=== PATIENT | female | born 1970 | race Hispanic/Latino ===

== ENCOUNTER 2023-08-17 11:29 | Emergency (ER) | payer OTHER ==
[2023-08-17 12:05] LABS: Hematocrit 40.5 % (36.0-45.0); Lymphocytes % 15.8 % (15.3-44.8); MCV 93.2 fL (80-100); MPV 9.3 fL (7.6-11.3); Platelets 235 thou/uL (152-406); RBC Red Blood Cell Count 4.34 M/uL (3.86-4.86)
--- NOTE | 2023-08-17 12:18 | RAD REPORT ---
EXAM DESCRIPTION: CT - Head Brain Wo Cont - 08/17/2023 12:00 pm CLINICAL HISTORY: HEADACHE Headache, drowsiness COMPARISON: No comparisons TECHNIQUE: All CT scans are performed using dose optimization technique as appropriate and may inclu de automated exposure control or mA/KV adjustment according to patient size. FINDINGS: No intracranial hemorrhage, hydrocephalus or extra-axial fluid collection.Prominent falx c alcifications.No areas of brain edema or evidence of midline shift. The paranasal sinuses and mastoids are clear. The calvarium is intact. IMPRESSION: No acute intracranial abnormality.
[2023-08-17 12:31] LABS: Bilirubin Direct 0.2 mg/dL (0-0.2); Bilirubin Total 0.4 mg/dL (0.2-1.0); Potassium 3.7 mEq/L (3.5-5.1)
[2023-08-17 12:32] LABS: Albumin 4.1 g/dL (3.4-5.0); Bilirubin Indirect, Calculated 0.2 mg/dL (0.2-0.8); Magnesium 2.2 mg/dL (1.6-2.4); Protein, Total 8.3 g/dL (6.4-8.2); Troponin High Sensitivity 6.5 pg/mL (<58.9)
--- NOTE | 2023-08-17 12:45 | RAD REPORT ---
EXAM DESCRIPTION: RAD - Chest Single View - 08/17/2023 12:11 pm CLINICAL HISTORY: CHEST PAIN Chest pain. COMPARISON: No comparisons FINDINGS: Portable technique limits examination quality. The lungs are grossly clear. The heart is normal in size. No displaced fractures. IMPRESSION: No acute intrathoracic process suspected.
--- NOTE | 2023-08-17 14:53 | ER ---
Nurse's Notes [facility] Name: Mariam Leslie Age: 53 yrs Sex: Female : 1970 Arrival Date: 08/17/2023 Time: 11:29 Bed 17 Private MD: Diagnosis: Elevated blood-pressure reading, without diagnosis of hypertension Presentation: 08/17 11:43 Chief complaint: Patient states: BP this morning 189/93, reports headache and dizziness ph at that time, no hx of HTN, denies chest pain. Coronavirus screen: Vaccine status: Patient reports receiving the 2nd dose of the covid vaccine. Ebola Screen: No symptoms or risks identified at this time. Initial Sepsis Screen: Does the patient meet any 2 criteria? No. Patient's initial sepsis screen is negative. Does the patient have a suspected source of infection? No. Patient's initial sepsis screen is negative. Risk Assessment: Do you want to hurt yourself or someone else? Patient reports no desire to harm self or others. Onset of symptoms was August 17, 2023. 11:43 Method Of Arrival: Ambulatory ph 11:43 Acuity: JELYL 3 ph Triage Assessment: 11:45 Headache History: Denies prior headaches. Pain: Pain began suddenly, 2 hours ago. Also eh3 complains of photophobia. 11:45 Pain: Pain currently is 8 out of 10 on a pain scale. eh3 11:46 General: Appears in no apparent distress. Behavior is calm, cooperative. Pain: Denies ph pain. Neuro: Level of Consciousness is awake, alert, obeys commands, Oriented to person, place, time, situation, Reports dizziness. 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 - Social history:: Smoking status: Patient denies any tobacco usage or history of. Screenin:45 [facility] ED Fall Risk Assessment (Adult) Score/Fall Risk Level 0 - 2 = Low Risk. Abuse eh3 screen: Denies threats or abuse. Denies injuries from another. Nutritional screening: No deficits noted. Tuberculosis screening: No symptoms or risk factors identified. Assessment: 11:45 General: Appears in no apparent distress. uncomfortable, Behavior is calm, cooperative, eh3 appropriate for age. Pain: Complains of pain in head. Neuro: Level of Consciousness is awake, alert, obeys commands, Oriented to person, place, time, situation. Cardiovascular: Capillary refill < 3 seconds Patient's skin is warm and dry. Respiratory: Airway is patent Respiratory effort is even, unlabored, Respiratory pattern is regular, symmetrical. GI: Abdomen is round non-distended. Derm: Skin is pink, warm \T\ dry. Musculoskeletal: Circulation, motion, and sensation intact. 12:00 Reassessment: Patient appears in no apparent distress at this time. Patient and/or eh3 family updated on plan of care and expected duration. Pain level reassessed. Patient is alert, oriented x 3, equal unlabored respirations, skin warm/dry/pink. 13:00 Reassessment: Patient appears in no apparent distress at this time. Patient and/or eh3 family updated on plan of care and expected duration. Pain level reassessed. Patient is alert, oriented x 3, equal unlabored respirations, skin warm/dry/pink. 14:00 Reassessment: Patient appears in no apparent distress at this time. Patient and/or eh3 family updated on plan of care and expected duration. Pain level reassessed. Patient is alert, oriented x 3, equal unlabored respirations, skin warm/dry/pink. Vital Signs: 11:43 BP 157 / 89; Pulse 97; Resp 18; Temp 97.2; Pulse Ox 99% on R/A; Weight 80 kg; Height 5 ph ft. 4 in. ; 12:15 BP 165 / 76; Pulse 56; Resp 18; Pulse Ox 99% on R/A; eh3 13:00 BP 155 / 82; Pulse 76; Resp 14; Pulse Ox 100% on R/A; eh3 14:00 BP 150 / 69; Pulse 79; Resp 15; Pulse Ox 10% on R/A; eh3 14:30 BP 154 / 78; Pulse 80; Resp 14; Pulse Ox 100% on R/A; eh3 11:43 Body Mass Index 30.27 (80.00 kg, 162.56 cm) ph ED Course: 11:32 Patient arrived in ED. im 11:38 Tala Dahl PA-C is PHCP. sb4 11:38 Mannie Augustine MD is Attending Physician. sb4 11:44 Francisca Barry, RN is Primary Nurse. eh3 11:45 Triage completed. ph 11:45 Patient has correct armband on for positive identification. Bed in low position. Call eh3 light in reach. Side rails up X2. Adult w/ patient. Provided Education on: Use of call hadley. Client placed on continuous cardiac and pulse oximetry monitoring. NIBP monitoring applied. Door closed. Noise minimized. Lights dimmed. Warm blanket given. 11:46 Arm band placed on Patient placed in an exam room, on a stretcher. ph 12:00 Inserted saline lock: 22 gauge in right forearm, using aseptic technique. Blood ds4 collected. Missed attempt(s): 22 gauge in right antecubital area. Bleeding controlled, band aid applied, catheter tip intact. 12:01 Head Brain Wo Cont CT In Process Unspecified. EDMS 12:12 XRAY Chest (1 view) In Process Unspecified. EDMS 15:01 No provider procedures requiring assistance completed. IV discontinued, intact, eh3 bleeding controlled, No redness/swelling at site. Pressure dressing applied. Administered Medications: 13:35 Drug: hydrALAZINE PO 10 mg PO once Route: PO; eh3 14:58 Follow up: Response: No adverse reaction eh3 15:00 Drug: Losartan PO 50 mg PO once Route: PO; eh3 15:17 Follow up: Response: No adverse reaction eh3 Medication: 15:01 VIS not applicable for this client. eh3 Outcome: 14:53 Discharge ordered by MD. sb4 15:03 Discharged to home ambulatory, with family, eh3 15:03 Condition: stable 15:03 Discharge instructions given to patient, family, Instructed on discharge instructions, follow up and referral plans. medication usage, Demonstrated understanding of instructions, follow-up care, medications, Prescriptions given X 1, 15:18 Patient left the ED. eh3 Signatures: Dispatcher [employer] EDMS Sami Ledesma ds4 Mildred Barry RN RN Francisca Barry, RN RN eh3 Tala Dahl, PA-C PAMmaieC sb4 Shruthi De La Paz Corrections: (The following items were deleted from the chart) 15:02 15:01 Pain: Pain Pain began eh3 eh3 15:02 11:45 Headache History: Denies prior headaches. eh3 eh3
--- NOTE | 2023-08-17 14:53 | EDPHYS ---
Physician Documentation [facility] Name: Mariam Leslie Age: 53 yrs Sex: Female : 1970 Arrival Date: 08/17/2023 Time: 11:29 Bed 17 Private MD: ED Physician Mannie Augustine HPI: 08/17 12:12 This 53 yrs old Female presents to ER via Ambulatory with complaints of High Blood sb4 Pressure, Headache. 12:12 The patient has elevated blood pressure and discovered this at a drugstore. Onset: The sb4 symptoms/episode began/occurred this morning. Associated signs and symptoms: Pertinent positives: dizziness, headache, Pertinent negatives: chest pain, visual changes. Severity of symptoms: At its worst the blood pressure was 189 mm Hg, in the emergency department the blood pressure is improved, 157 mm Hg. The patient has not experienced similar symptoms in the past. The patient has not recently seen a physician, and does not have an established primary care provider. 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 - Social history:: Smoking status: Patient denies any tobacco usage or history of. ROS: 12:12 Constitutional: Negative for fever, chills, and weight loss, sb4 12:12 Neuro: Positive for dizziness, headache, 12:12 All other systems are negative, Exam: 12:13 Constitutional: This is a well developed, well nourished patient who is awake, alert, sb4 and in no acute distress. Head/Face: Normocephalic, atraumatic. Eyes: Extra-ocular motions intact. Periorbital areas with no swelling, redness, or edema. ENT: Mucous membranes moist. Cardiovascular: Regular rate and rhythm with a normal S1 and S2. Respiratory: Lungs have equal breath sounds bilaterally, clear to auscultation and percussion. No rales, rhonchi or wheezes noted. No increased work of breathing, no retractions or nasal flaring. Abdomen/GI: Soft, non-tender, no distension. Skin: Warm, dry with normal turgor. Normal color with no rashes, no lesions, and no evidence of cellulitis. MS/ Extremity: Pulses equal, no cyanosis. Neurovascular intact. Full, normal range of motion. Neuro: Awake and alert, GCS 15, oriented to person, place, time, and situation. Motor strength 5/5 in all extremities. Sensory grossly intact. Vital Signs: 11:43 BP 157 / 89; Pulse 97; Resp 18; Temp 97.2; Pulse Ox 99% on R/A; Weight 80 kg; Height 5 ph ft. 4 in. ; 12:15 BP 165 / 76; Pulse 56; Resp 18; Pulse Ox 99% on R/A; eh3 13:00 BP 155 / 82; Pulse 76; Resp 14; Pulse Ox 100% on R/A; eh3 14:00 BP 150 / 69; Pulse 79; Resp 15; Pulse Ox 10% on R/A; eh3 14:30 BP 154 / 78; Pulse 80; Resp 14; Pulse Ox 100% on R/A; eh3 11:43 Body Mass Index 30.27 (80.00 kg, 162.56 cm) ph MDM: 11:38 Patient medically screened. sb4 12:13 Differential diagnosis: hypertensive crisis, Malignant HTN, CVA, intracerebral sb4 hemorrhage. Data interpreted: Pulse oximetry: on room air is 99 %. Interpretation: normal. 14:52 Data reviewed: vital signs, nurses notes, lab test result(s), EKG, radiologic studies, sb4 and as a result, I will discharge patient. Consideration of Admission/Observation Escalation of care including admission/observation considered. Scoring Tools HEART Score: History: ECG: Age: Risk Factors: 1 or 2 risk factors (1), Troponin: Total Score = 2. Counseling: I had a detailed discussion with the patient and/or guardian regarding the historical points, exam findings, and any diagnostic results supporting the discharge/admit diagnosis, the presence of at least one elevated blood pressure reading (>120/80) during this emergency department visit, lab results, radiology results, the need for outpatient follow up, for definitive care, to return to the emergency department if symptoms worsen or persist or if there are any questions or concerns that arise at home. 08/17 11:49 Order name: Basic Metabolic Panel; Complete Time: 12:32 sb4 08/17 11:49 Order name: CBC with Diff; Complete Time: 12:10 sb4 08/17 11:49 Order name: LFT's; Complete Time: 12:32 sb4 08/17 11:49 Order name: Magnesium; Complete Time: 12:32 sb4 08/17 11:49 Order name: NT PRO-BNP; Complete Time: 12:32 sb4 08/17 11:49 Order name: Troponin HS; Complete Time: 12:32 sb4 08/17 11:49 Order name: XRAY Chest (1 view); Complete Time: 12:57 sb4 08/17 11:49 Order name: Head Brain Wo Cont CT; Complete Time: 12:31 sb4 08/17 11:49 Order name: EKG; Complete Time: 11:49 sb4 08/17 11:49 Order name: Cardiac monitoring; Complete Time: 12:31 sb4 08/17 11:49 Order name: EKG - Nurse/Tech; Complete Time: 12:31 sb4 08/17 11:49 Order name: IV Saline Lock; Complete Time: 12:00 sb4 08/17 11:49 Order name: Labs collected and sent; Complete Time: 12:00 sb4 08/17 11:49 Order name: O2 Per Protocol; Complete Time: 12:00 sb4 08/17 11:49 Order name: O2 Sat Monitoring; Complete Time: 12:00 sb4 EC:33 Rate is 86 beats/min. Rhythm is regular, Normal Sinus Rhythm. VA interval is normal at sb4 162 msec. QRS interval is normal at 88 msec. QT interval is normal at 386 msec. No Q waves. T waves are Normal. No ST changes noted. Clinical impression: Normal ECG. Interpreted by me. Reviewed by me. Administered Medications: 13:35 Drug: hydrALAZINE PO 10 mg PO once Route: PO; 3 14:58 Follow up: Response: No adverse reaction eh3 15:00 Drug: Losartan PO 50 mg PO once Route: PO; eh3 15:17 Follow up: Response: No adverse reaction 3 Disposition: 17:11 Co-signature as Attending Physician, Mannie Augustine MD I reviewed the patient's care rt provided by the Advanced Practice Provider and agree with the diagnosis and treatment plan. Disposition Summary: 08/17/23 14:53 Discharge Ordered Notes: Location: Home sb4 Problem: new sb4 Symptoms: have improved sb4 Condition: Stable sb4 Diagnosis - Elevated blood-pressure reading, without diagnosis of hypertension sb4 Followup: sb4 - With: Private Physician - When: 2 - 3 days - Reason: Recheck today's complaints, Continuance of care, Re-evaluation by your physician Discharge Instructions: - Discharge Summary Sheet sb4 - Heart Disease Prevention sb4 - Hypertension, Adult, [id number] sb4 - DASH Eating Plan sb4 - Managing Your Hypertension sb4 Forms: - Medication Reconciliation Form sb4 - Thank You Letter sb4 - Antibiotic Education sb4 - Prescription Opioid Use sb4 - Patient Portal Instructions sb4 - Leadership Thank You Letter sb4 Prescriptions: - losartan 50 mg Oral tablet - take 1 tablet ORAL route daily; 10 tablet; Refills: 0, Product Selection sb4 Permitted Signatures: Dispatcher [employer] Mildred Shelton RN RN Francisca Barry RN RN eh3 Tala Dahl, PA-C PAMamieC sb4 Mannie Augustine MD MD rt
[2023-08-17] MEDS ORDERED: LOSARTAN POTASSIUM 50 MG TABLET ONE (15:17)
[2023-08-17 15:45] VITALS: TEMP 97.2
[2023-08-17 15:50] VITALS: BP 154/78; O2SAT 100
== END 2023-08-17 15:18 | disposition home or self-care (01) ==
LOC: ER 11:29
DX: R03.0 Elevated blood-pressure reading, without diagnosis of hypertension (principal)
CPT/HCPCS: 36415; 70450; 71045; 80048; 80076; 83735; 83880; 84484; 85025